=== PATIENT | male | born 1940 | race Caucasian/White ===

== ENCOUNTER 2024-12-03 06:45 | Emergency (ER) | payer MEDICARE, OTHER, SELFPAY ==
[2024-12-03] VITALS (8 sets, daily range): BP systolic 136–157; BP diastolic 62–111
--- NOTE | 2024-12-03 07:03 | ED.GENMED ---
History of Present Illness
General
Chief Complaint: Chest Pain
Source: patient
Time Seen by Provider: 12/03/24 06:48
History of Present Illness
History of Present Illness:
83-year-old male presents to the emergency room complaining of chest pain. Pain was noted at about 430 this morning when the patient woke up. It is a dull pain located in the left chest and radiates to his shoulder. No associated shortness of
breath, nausea or diaphoresis. 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 This may account for the pain. However he went to make sure he was not having a heart attack. Nothing seems to make the
pain better or worse. He denies any previous cardiac history. 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 No fever, chills, nausea or vomiting. No trauma.
Phy Exam
Physical Exam
Physical Exam:
General: Awake, Alert, Oriented X3. No acute distress.
Vitals: unremarkable
Head: Atraumatic
Eyes: Pupils equal, EOMI
Throat: Airway intact, no exudates
Neck: Trachea midline
Chest: Mild tenderness palpation over the left sternal costal border
Lungs: Clear and equal b/l
Heart: Regular rate, no murmurs
Abd: Soft, Nontender, No pulsatile mass
Neuro: Nonfocal
Skin: Warm, dry, no rash
Extremities: pulses equal b/l, no edema
Scores
Heart Score for Chest Pain Patients
STEMI patient?: No
History: Slightly or Non-Suspicious
ECG: Nonspecific Repolarization
Age: >/= 65 years
Risk Factors: 1 or 2 Risk Factors
Troponin: </= Normal Limit
Heart Score for Chest Pain Patients: 4
Heart Score Risk: 20.3% MACE over next 6 weeks
Course
Orders/Labs/Results
Orders:
Orders
12/03/24
Electrocardiogram (*1) Stat
Reason for Study: Chest Pain
Comment: DONE'
12/03/24 07:02
Acetaminophen [Tylenol] 1,000 mg PO NOW STA
12/03/24 07:03
Cardiac Monitoring- Treatment ONCE
CR Chest - 2 Views Urgent
Comment:
Reason For Exam: chest pain
12/03/24 07:11
Basic Metabolic Panel Urgent
Complete Blood Count/With Diff Urgent
Troponin I Urgent
12/03/24 09:28
Troponin I Urgent
Abnormal Lab Results
12/03/24
07:11
RBC 4.39 L 10^6/uL
(4.70-6.10)
MCV 98.6 H fL
(80.0-94.0)
MCH 33.3 H pg
(27.0-31.0)
Monocytes % 10.0 H %
(1.7-9.3)
Chloride 109 H mmol/L
(98-107)
BUN 22 H mg/dl
(9-20)
12/03/24 07:11
12/03/24 07:11
Vital Signs
Initial and Last Documented VS:
Initial Vital Signs
Temp Pulse Resp BP Pulse Ox
97.8 F 62 20 157/88 98
12/03/24 06:47 12/03/24 06:47 12/03/24 06:47 12/03/24 06:47 12/03/24 06:47
Last Documented Vital Signs
Temp Pulse Resp BP Pulse Ox
97.6 F 82 20 140/68 99
12/03/24 12:27 12/03/24 12:27 12/03/24 12:27 12/03/24 12:27 12/03/24 12:27
MDM/Problems Addressed
Differential Diagnosis Includes:
Pneumothorax, pneumonia, PE, ACS
MDM/Problems Addressed:
Patient presents with left-sided chest pain. EKG shows no acute ischemic changes. Chest x-ray also shows no acute abnormalities. Patient observed without any change in his status. Second troponin normal. Stable for discharge and outpatient
follow-up
*Pulse Oximetry
SaO2: 98
Oxygen Mode of Delivery: Room air
Patient hypoxic: no
*EKG
Interpreted by ED Provider?: Yes
Interpretation: abnormal
Heart Rate: 63
Rate: normal
Rhythm: sinus
Tutwiler: normal axis
Interval: normal interval and first degree heart block
QRS Pattern: normal QRS
Ischemia: no ischemia
*Legal Instructor Interpretation
Rate: normal
Interpretation: normal
Rhythm: sinus
*Critical Care Note
Total Time (30-74mins, 75-104mins- exclusive of procedures): Not Applicable
ED Attending Note
-
Portions of this chart may have been created with voice recognition software.� Occasional wrong word or��sound alike� substitutions may have occurred due to the inherent limitations of voice recognition software.
Discharge Plan
Departure
Patient Disposition: Home (Routine Discharge)
Date of Disposition: 12/03/24
Time of Disposition: 10:31
Patient with high blood pressure during this ER visit?: Yes
Condition: Good
Discharge Problem:
Chest pain
Instructions: Chest Pain DCA Follow Up, BLOOD PRESSURE
Referrals:
Neo Deras, DO [Family Provider, Internal Medicine]
Activity Restrictions/Additional Instructions:
There is no evidence of any serious cause for your chest pain. I put in a minor chest pain hotline so that you should receive a call from the geology scientist for a follow-up appointment.
Interventions
Interventions:
*Risk Screen - Suicide Last Done: 12/03/24 07:00
*General Assessment Last Done: 12/03/24 07:00
*Neglect/Abuse Screening Last Done: 12/03/24 07:00
*ED- Fall Risk Assessment Last Done: 12/03/24 07:00
*ED COVID-19 Vaccine History Last Done: 12/03/24 07:25
*ED Influenza Vaccine History Last Done: 12/03/24 07:25
*Nursing Disposition Last Done: 12/03/24 12:27
ED- Cardiac Assessment Last Done: 12/03/24 07:00
Discharge Date and Time
Discharge Date/Time: 12/03/24 12:28
Print Language: BARBADIAN
[2024-12-03 07:25] LABS: Hematocrit 43.3 % (39.0-52.0); Hemoglobin 14.6 g/dL (13.0-18.0); Mean Corp Hgb Conc. 33.7 g/dL (33.0-37.0); Mean Corpuscular Volume 98.6 fL (80.0-94.0); Nucleated Red Blood Cells % 0 % (-); Platelet Count 289 10^3/uL (130-400); Red Cell Dist. Width 12.1 % (11.5-14.5)
[2024-12-03 07:38] LABS: Blood Urea Nitrogen 22 mg/dl (9-20); Calcium 9.3 mg/dl (8.4-10.2); Carbon Dioxide 23 mmol/L (22-30); Chloride 109 mmol/L (98-107); Estimated Creatinine Clearance 76 ml/min; Glucose 91 mg/dl (70-99); Potassium 4.2 mmol/L (3.5-5.1); Sodium 140 mmol/L (135-145); eGFR > 60.00
[2024-12-03 07:46] LABS: Troponin I < 0.012 ng/ml
[2024-12-03] MEDS: TYLENOL 1000 MG PO (08:00)
[2024-12-03 10:18] LABS: Troponin I < 0.012 ng/ml
== END 2024-12-03 12:28 | disposition home or self-care (01) ==
LOC: EMR 06:45
PROVIDERS: EMERGENCY PHYSICIAN Emergency Medicine; FAMILY PHYSICIAN Internal Medicine
DX: R07.9 Chest pain, unspecified (principal); R03.0 Elevated blood-pressure reading, without diagnosis of hypertension; I67.1 Cerebral aneurysm, nonruptured; Z79.01 Long term (current) use of anticoagulants; Z79.82 Long term (current) use of aspirin
CPT/HCPCS: 99284; 71046; 80048; 84484; 85025; 93005